=== PATIENT | female | born 1950 | race Caucasian/White ===

== ENCOUNTER → 2016-09-20 | Outpatient (CLI) | payer OTHER ==
[~2016-09-20] MED LIST: ALBU1AER9 INH; ASPI81TA28 PO; BIOT1TAB5 PO; CALC-26 PO; CETI10TA84 PO; CHOL100027 PO; CYAN10005 PO; DICL1GEL28 TOP; DOCU250C11 PO; ECHI400C11 PO; EFFSR150 PO; ESTR0.3T PO; HYDR-3763 PO; HYZ/10015 PO; IPRA0.032 NAE; IPRASOL4 INH; METO25TA3 PO; MORPHINE PUMP IT; MRLP17 PO; MULT-506 PO; OLOP0.1S2 OPB; OMEG10007 PO; PRED20TA PO; PRLSR20 PO; SIMV40TA2 PO
--- NOTE | 2016-09-21 12:18 | MAMMOGRAPHY REPORT ---
BILATERAL DIGITAL SCREENING MAMMOGRAM TOMOSYNTHESIS WITH CAD: 09/20/2016 CLINICAL HISTORY: Routine screening examination. TECHNIQUE: Breast tomosynthesis in addition to standard 2D mammography was performed. Current study was also evaluated with a Computer Aided Detection (CAD) system. COMPARISON: Comparison is made to exams dated: 09/19/2015 mammogram, 09/15/2014 mammogram, 09/14/2013 m ammogram, 09/11/2012 mammogram, 09/11/2011 mammogram, and 08/23/2010 mammogram - [facility] enter. BREAST COMPOSITION: The tissue of both breasts is heterogeneously dense, which may obscure small mas ses. FINDINGS: There are diffuse bilateral punctate microcalcifications. Also numerous scattered bilater al benign rim calcifications. Stable nodular parenchymal pattern. Minimal vascular calcification. N o suspicious mass, architectural distortion or cluster of new, suspicious microcalcifications is seen . IMPRESSION: ACR BI-RADS CATEGORY 2: BENIGN There is no mammographic evidence of malignancy. A 1 year screening mammogram is recommended. The pa tient will receive written notification of the results. Approximately 10% of breast cancers are not detected with mammography. A negative mammographic report should not delay biopsy if a clinically suggestive mass is present. Jazmin Roldan M.D. ay/:09/20/2016 16:12:59 Dental Financial Coordinator: Nicky LARA(Marcy)(Mary), [facility] letter sent: Normal 1/2 BI-RADS Code: ACR BI-RADS Category 2: Benign
== END | disposition home or self-care (01) ==
LOC: C.MAMM 10:33
PROVIDERS: ATTEND Family Medicine
DX: Z12.31 Encounter for screening mammogram for malignant neoplasm of breast (principal)

== ENCOUNTER → 2017-09-23 | Outpatient (CLI) | payer OTHER, MEDICARE ==
[~2017-09-23] MED LIST changes: -ALBU1AER9 INH; -CHOL100027 PO; -DICL1GEL28 TOP; -EFFSR150 PO; -HYDR-3763 PO; +IPRA-64 NEB; +IPRA0.03; -IPRA0.032 NAE; -IPRASOL4 INH; -MRLP17 PO; -OLOP0.1S2 OPB; +POLY335019 PO; -PRED20TA PO; +SPIR25TA PO; +TURM500T PO; +VENL150C56 PO; +VNTHFA/IN INH
--- NOTE | 2017-09-24 07:30 | MAMMOGRAPHY REPORT ---
BILATERAL DIGITAL SCREENING MAMMOGRAM TOMOSYNTHESIS WITH CAD: 09/23/2017 CLINICAL HISTORY: Routine screening. Patient has no complaints. TECHNIQUE: The study was acquired using full field digital technology and interpreted from soft copy. Breast tomosynthesis in addition to standard 2D mammography was performed. Current study was also ev aluated with a Computer Aided Detection (CAD) system. COMPARISON: Comparison is made to exams dated: 09/20/2016 mammogram, 09/19/2015 mammogram, 09/15/2014 m ammogram, 09/14/2013 mammogram, 09/11/2012 mammogram, and 09/11/2011 mammogram - [facility] enter. BREAST COMPOSITION: The tissue of both breasts is heterogeneously dense, which may obscure small mass es. FINDINGS: The parenchymal pattern is unchanged. No developing mass, architectural distortion or cluster of susp icious microcalcifications is seen in either breast. There are benign scattered calcifications in amparo th breasts. IMPRESSION: ACR BI-RADS CATEGORY 2: BENIGN There is no mammographic evidence of malignancy. A 1 year screening mammogram is recommended.( [id number]) The patient will receive written notification of the results. Some breast cancers are not detected with mammography. A negative mammographic report should not mary y biopsy if a clinically suggestive mass is present. Jazmin Roldan M.D. ay/:09/23/2017 15:11:33 Stamp Pad Maker: RT Lee(R)(M)(BD), [facility] letter sent: Normal 1/2 BI-RADS Code: ACR BI-RADS Category 2: Benign
== END | disposition home or self-care (01) ==
LOC: C.MAMM 10:48
PROVIDERS: ATTEND Family Medicine
DX: Z12.31 Encounter for screening mammogram for malignant neoplasm of breast (principal)